=== PATIENT | male | born 1990 | race Two or more races ===

== ENCOUNTER 2018-07-17 19:57 | Emergency (ER) | payer MEDICAID ==
[~2018-07-17] VITALS: Ht 165.1 cm; Wt 71.8 kg
[2018-07-17 20:41] LABS: BASOPHILS # (AUTO) 0.03 x10^3/uL (0-0.1); BASOPHILS % (AUTO) 0 % (0-1); EOSINOPHILS # (AUTO) 0.12 x10^3/uL (0-0.4); EOSINOPHILS % (AUTO) 2 % (1-7); LYMPHOCYTES # (AUTO) 1.49 x10^3/uL (1-3.4); LYMPHOCYTES % (AUTO) 26 % (22-44); MD NO; MEAN CORPUSCULAR HEMOGLOBIN 30.2 pg (27.5-34.5); MEAN CORPUSCULAR HGB CONC 34.5 g/dL (33.2-36.2); MEAN CORPUSCULAR VOLUME 87.7 fL (81-97); MEAN PLATELET VOLUME 8.7 fL (7.4-10.4); MONOCYTES # (AUTO) 0.47 x10^3/uL (0.2-0.8); MONOCYTES % (AUTO) 8 % (2-9); NEUTROPHILS # (AUTO) 3.57 x10^3/uL (1.8-6.8); NEUTROPHILS % (AUTO) 63 % (42-75); PLATELET COUNT 181 x10^3/uL (130-400); RED BLOOD COUNT 5.37 x10^6/uL (4.38-5.82); RED CELL DISTRIBUTION WIDTH 12.4 % (9.4-14.8)
[2018-07-17 20:48] LABS: ALANINE AMINOTRANSFERASE 44 U/L (12-78); ALBUMIN 4.1 g/dL (3.4-5.0); ANION GAP 7 mmol/L (5-15); CALCIUM 8.6 mg/dL (8.5-10.1); CHLORIDE 105 mmol/L (98-107); CREATININE 1.38 mg/dL (0.7-1.3)
[2018-07-17 20:51] LABS: ALKALINE PHOSPHATASE 96 U/L (45-117); BILIRUBIN,TOTAL 0.3 mg/dL (0.2-1.0); TOTAL PROTEIN 7.4 g/dL (6.4-8.2)
[2018-07-17 21:52] VITALS: BP 158/93
== END 2018-07-17 21:54 | disposition home or self-care (01) ==
LOC: ED 21:18
DX: R20.2 Paresthesia of skin (principal)
CPT/HCPCS: 36415; 70450; 72110; 80053; 85025; 93005; 99284

== ENCOUNTER 2020-03-02 20:23 | Emergency (ER) | payer MEDICAID, OTHER ==
[~2020-03-02] VITALS: Ht 165.1 cm; Wt 64.0 kg
[2020-03-02] MEDS ORDERED: SILVER NITRATE STICK TP ONE (20:57)
[2020-03-02 21:55] VITALS: BP 131/77
== END 2020-03-02 22:02 | disposition home or self-care (01) ==
LOC: ED 21:45
DX: N99.820 Postprocedural hemorrhage of a genitourinary system organ or structure following a genitourinary system procedure (principal)
CPT/HCPCS: 99282

== ENCOUNTER 2020-12-13 10:52 | Emergency (ER) | payer OTHER ==
[~2020-12-13] VITALS: Ht 165.1 cm; Wt 57.1 kg
--- NOTE | 2020-12-13 11:10 | NUR ---
PT C/O OF PRESSURE IN HIS CHEST THAT CAUSED SOB WHILE HE WAS AT WORK TODAY. STATES PAIN IS IN STERNUM AND DOES NOT RADIATE ANYWHERE. REPORTS CHEST PRESSURE HAS SUBSIDED BUT SOB IS LINGERING. DENIES N/V OR HEADACHE.
[2020-12-13 12:40] VITALS: BP 113/67
== END 2020-12-13 12:42 | disposition home or self-care (01) ==
LOC: ED 11:39
DX: J45.31 Mild persistent asthma with (acute) exacerbation (principal); R07.89 Other chest pain
CPT/HCPCS: 71046; 93005; 99283

== ENCOUNTER 2021-03-10 14:09 | Outpatient (CLI) | payer OTHER ==
[2021-03-10] MEDS ORDERED: ALBU8.5H8 INH (14:52)
== END 2021-03-10 23:59 | disposition home or self-care (01) ==
LOC: STAR 14:09
PROVIDERS: ATTEND Otolaryngology
DX: Z02.9 Encounter for administrative examinations, unspecified (principal)